=== PATIENT | male | born 1995 | race Caucasian/White ===

== ENCOUNTER 2017-11-07 05:00 | Day surgery (SDC) | payer SELFPAY ==
[~2017-11-07] VITALS: Ht 188 cm; Wt 90.7 kg
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
[2017-11-07] MEDS ORDERED: ceFAZolin INJECTION 1,000 MG in NS (IVPB) 50 ML IV ONE (05:15)
[2017-11-07 05:25] LABS: BASOPHILS % (AUTO) 1 % (0-10); EOSINOPHILS % (AUTO) 1 % (0-10); HEMATOCRIT 38 % (40-54); HEMOGLOBIN 13.6 G/DL (13.3-17.7); LYMPHOCYTES # (AUTO) 1.8 X 10^3 (1.0-4.0); LYMPHOCYTES % (AUTO) 31 % (12-44); MEAN CORPUSCULAR HEMOGLOBIN 30 PG (25-34); MEAN CORPUSCULAR HGB CONC 36 G/DL (32-36); MEAN CORPUSCULAR VOLUME 86 FL (80-99); MEAN PLATELET VOLUME 9.4 FL (7.4-10.4); MONOCYTES # (AUTO) 0.8 X 10^3 (0.0-1.0); MONOCYTES % (AUTO) 14 % (0-12); NEUTROPHILS # (AUTO) 3.2 X 10^3 (1.8-7.8); NEUTROPHILS % (AUTO) 55 % (42-75); PLATELET COUNT 247 10^3/uL (130-400); RED BLOOD COUNT 4.47 10^6/uL (4.35-5.85); RED CELL DISTRIBUTION WIDTH 12.1 % (10.0-14.5); WHITE BLOOD COUNT 5.9 10^3/uL (4.3-11.0)
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
[2017-11-07 05:39] LABS: INR 1.2 (0.8-1.4); PROTHROMBIN TIME PATIENT 14.8 SEC (12.2-14.7)
[2017-11-07 05:45] LABS: ALANINE AMINOTRANSFERASE 13 U/L (0-55); ALBUMIN 4.4 GM/DL (3.2-4.5); ALKALINE PHOSPHATASE 70 U/L (40-136); BILIRUBIN,TOTAL 0.6 MG/DL (0.1-1.0); BUN/CREATININE RATIO 11; CALCIUM 9.7 MG/DL (8.5-10.1); CARBON DIOXIDE 26 MMOL/L (21-32); CHLORIDE 104 MMOL/L (98-107); GFR ESTIMATED > 60; GLUCOSE 94 MG/DL (70-105); POTASSIUM 3.8 MMOL/L (3.6-5.0); SODIUM 139 MMOL/L (135-145); TOTAL PROTEIN 7.4 GM/DL (6.4-8.2)
[2017-11-07] MEDS ORDERED: TETANUS,DIPTH,PERTUSS P/F (BOOSTRIX) 0.5 ML VIAL IM ONE (05:45)
[2017-11-07] MEDS ORDERED: fentaNYL INJECTION 100 MCG/2 ML AMP IVP STA (05:58)
[2017-11-07] MEDS ORDERED: proPOfol 200 MG/20 ML (DIPRIVAN) VIAL IV ONE (06:37)
[2017-11-07] MEDS ORDERED: fentaNYL INJECTION 100 MCG/2 ML AMP ONE (06:37)
[2017-11-07] MEDS ORDERED: LIDOCAINE PF 2% 5 ML (XYLOCAINE) VIAL ONE (06:38)
[2017-11-07] MEDS ORDERED: MIDAZOLAM 2 MG/2 ML (VERSED) VIAL ONE (06:38)
[2017-11-07] MEDS ORDERED: SUCCINYLCHOLINE INJ 100 MG/5 ML SYR ONE (06:39)
[2017-11-07] MEDS ORDERED: DEXAMETHASONE 10 MG/ML (DECADRON) 1 ML VIAL ONE (06:39)
[2017-11-07] MEDS ORDERED: ONDANSETRON 4 MG/2 ML (SDV) Z0FRAN ONE (06:39)
[2017-11-07] MEDS ORDERED: GENTAMICIN 40 MG/ML 2 ML INJ SDV IV ONE (06:44)
[2017-11-07] MEDS ORDERED: CEPH250C PO (07:10)
[2017-11-07] MEDS ORDERED: OXYC-471 PO (07:10)
[2017-11-07] MEDS ORDERED: ROCURONIUM 10 MG/ML 5 ML SYRINGE IV ONE (07:39)
[2017-11-07] MEDS ORDERED: SEVOFLURANE (ULTANE) 15 ML INHAL SOLN ONE ×2 (07:39→07:41)
--- NOTE | 2017-11-07 07:42 | Diagnostic Imaging Report ---
Indication: Laceration to wrist. Findings: There has been previous open reduction and internal fixation of a distal radial fracture with plate and screws. The distal radius and ulna are otherwise intact. No definite acute fracture or dislocation. There is a radiopaque foreign body along the dorsal aspect of the wrist. Impression: Radiopaque foreign body along the dorsal aspect of the wrist. No acute fracture or dislocation. Dictated by: Dictated on workstation # [id number]
--- NOTE | 2017-11-07 07:45 | Diagnostic Imaging Report ---
Indication: Laceration. Findings: There has been previous open reduction and internal fixation of a distal radial fracture plate and screws. There is a radiopaque density along the dorsal aspect of the wrist. While this may reflect avulsion fracture of the ulna, the possibility of a foreign body is also an additional consideration. There is no other fracture or dislocation. Impression: Radiopaque density along the dorsal aspect of the wrist. Again this is indeterminate between an avulsion fracture off the ulnar or possibly radiopaque foreign body. Recommend clinical correlation. Dictated by: Dictated on workstation # [id number]
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
[2017-11-07 08:50] VITALS: BP 122/67
[2017-11-07 09:20] VITALS: BP 117/74
[2017-11-07 09:50] VITALS: BP 128/87
[2017-11-07] MEDS ORDERED: oxyCODONE/APAP 5/325MG (PERCOCET 5) TABLET ONE (10:29)
[2017-11-07] MEDS ORDERED: oxyCODONE/APAP 5/325MG (PERCOCET 5) TABLET PO ONE (10:30)
[2017-11-07] MEDS ORDERED: ONDANSETRON 4 MG/2 ML (SDV) Z0FRAN IVP PRN (10:44)
[2017-11-07] MEDS ORDERED: morphine INJ 10 MG/ML 1ML (SYR OR VIAL) IVP PRN (10:44)
[2017-11-07] MEDS ORDERED: MEPERIDINE (DEMEROL) INJ 50 MG/ML IVP PRN (10:44)
[2017-11-07] MEDS ORDERED: HYDROmorphone 1 MG/ML (DILAUDID) 1 ML SYRINGE IV PRN (10:44)
[2017-11-07] MEDS ORDERED: PROMETHAZINE INJ 25 MG/ML (PHENERGAN) AMP IVP PRN (10:45)
[2017-11-07 10:50] VITALS: BP 135/86
[2017-11-07 11:30] VITALS: BP 135/86
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
== END 2017-11-07 11:30 | disposition home or self-care (01) ==
LOC: ER 05:04 → SDC 06:19 → ER 06:49 → SDC 11:30
PROVIDERS: ATTEND Orthopaedic Surgery
DX: S56.522A Laceration of other extensor muscle, fascia and tendon at forearm level, left arm, initial encounter (principal); S56.426A Laceration of extensor muscle, fascia and tendon of left ring finger at forearm level, initial encounter; S56.428A Laceration of extensor muscle, fascia and tendon of left little finger at forearm level, initial encounter; F17.210 Nicotine dependence, cigarettes, uncomplicated; V18.0XXA Pedal cycle driver injured in noncollision transport accident in nontraffic accident, initial encounter
CPT/HCPCS: 36415; 73090; 73110; 80053; 80320; 85025; 85610; 85730; 90471; 90715; 96365; 96375

== ENCOUNTER → 2017-11-07 | Outpatient (CLI) | payer SELFPAY ==
[~2017-11-07] MED LIST: CEPH250C PO; CEPHALEXIN 250 MG (KEFLEX) CAP PO SCH; GENTAMICIN 40 MG/ML 2 ML INJ SDV ONE; HYDROmorphone 1 MG/ML (DILAUDID) 1 ML SYRINGE IV PRN; MEPERIDINE (DEMEROL) INJ 50 MG/ML IVP PRN; ONDANSETRON 4 MG/2 ML (SDV) Z0FRAN IVP PRN; OXYC-471 PO; PROMETHAZINE INJ 25 MG/ML (PHENERGAN) AMP IVP PRN; ceFAZolin INJECTION 1,000 MG in NS (IVPB) 50 ML IV ONE; morphine INJ 10 MG/ML 1ML (SYR OR VIAL) IVP PRN; oxyCODONE/APAP 5/325MG (PERCOCET 5) TABLET PO PRN
--- NOTE | 2017-11-07 07:09 | Discharge Inst-Surgical ---
Discharge Inst-Surgical Depart Medication/Instructions Final Diagnosis: laceration left forearm Consults/Follow Up Goal/Follow Up Appt.: Follow up with Dr. De La Rosa in 7-10 days Patient Instructions: Percocet for pain Keflex -- antibiotic. take until completed Keep splint and dressing in place until appointment. Activity Activity as Tolerated: No Keep splint on left hand to protect tendons. Activity Instructions: Avoid Pulling & Pushing, Avoid Stress to Incision Elevate Extremity: Elevate Above Heart Driving Instructions: You May Drive No Driving When on Pain Meds: Yes Avoid ALL Tobacco Products: Smoking of Any Kind Diet Discharge Diet: No Restrictions Diet for 24 Hours: No Alcohol Symptoms to Report to Physicia: Extremity Discoloration, Pain Increased, Fever Over 101 Degrees F If Any Problems/Questions/Issu: Go to Emergency Room Skin/Wound Care Infection Signs and Symptoms: Foul Odor of Wound, Increased Drainage, Increased Swelling, Temperature Above 101 F Bathing Instructions: Shower Operative Area Clean and Dry: Keep Incision Clean/Dry SUHAS DE LA ROSA MD Nov 07, 2017 07:09
--- NOTE | 2017-11-07 08:11 | Anesthesia-General Post-Op ---
General Patient Condition Mental Status/LOC: Same as Preop Cardiovascular: Satisfactory Nausea/Vomiting: Absent Respiratory: Satisfactory Pain: Controlled Complications: Absent Post Op Complications Complications None Follow Up Care/Instructions Patient Instructions None needed. Anesthesia/Patient Condition Patient Condition Patient is doing well, no complaints, stable vital signs, no apparent adverse anesthesia problems. No complications reported per nursing. KIM GANDHI CRNA Nov 07, 2017 08:11
== END ==
LOC: SDC 06:19
PROVIDERS: ATTEND Orthopaedic Surgery
DX: Z53.9 Procedure and treatment not carried out, unspecified reason (principal)

== ENCOUNTER 2018-10-23 03:50 | Emergency (ER) | payer BC ==
[~2018-10-23] VITALS: Ht 188 cm; Wt 90.7 kg
[~2018-10-23 03:50] MED LIST changes: -CEPHALEXIN 250 MG (KEFLEX) CAP PO SCH; -GENTAMICIN 40 MG/ML 2 ML INJ SDV ONE; -HYDROmorphone 1 MG/ML (DILAUDID) 1 ML SYRINGE IV PRN; -MEPERIDINE (DEMEROL) INJ 50 MG/ML IVP PRN; -ONDANSETRON 4 MG/2 ML (SDV) Z0FRAN IVP PRN; -PROMETHAZINE INJ 25 MG/ML (PHENERGAN) AMP IVP PRN; -ceFAZolin INJECTION 1,000 MG in NS (IVPB) 50 ML IV ONE; -morphine INJ 10 MG/ML 1ML (SYR OR VIAL) IVP PRN; -oxyCODONE/APAP 5/325MG (PERCOCET 5) TABLET PO PRN
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
[2018-10-23] MEDS ORDERED: CLINDAMYCIN 600 MG/4ML (CLEOCIN) VIAL IM STA (04:13)
[2018-10-23] MEDS ORDERED: KETOROLAC 60 MG/2 ML VIAL IM STA (04:13)
[2018-10-23] MEDS ORDERED: MUPIROCIN 2% OINT 22 GM (BACTROBAN) TUBE ONE (04:15)
[2018-10-23] MEDS ORDERED: CLINDAMYCIN 600 MG/4ML (CLEOCIN) VIAL ONE (04:17)
[2018-10-23] MEDS ORDERED: KETO10TA PO (04:19)
[2018-10-23] MEDS ORDERED: SULF1TAB35 PO (04:19)
--- NOTE | 2018-10-23 04:21 | ED Integumentary General ---
General Chief Complaint: Skin/Wound Problems Stated Complaint: BITE ON CHEEK AND BUTT Source: patient History of Present Illness Date Seen by Provider: Oct 23, 2018 Time Seen by Provider: 03:59 Initial Comments PT ARRIVES VIA POV FROM HOME C/O PAINFUL AREA TO LEFT BUTTOCK --NOTICED YESTERDAY WOKE UP AN HOUR AGO WITH SIMILAR AREA TO RIGHT CHEEK HAS HISTORY OF MRSA AND THESE AREAS ARE THE SAME HAS BEEN POKING, PICKING AT AND SQUEEZING THE AREAS, WITHOUT IMPROVEMENT AND SIGNIFICANT WORSENING OF PAIN, REDNESS AND SWELLING HAS PUT "PRID" ON THE AREAS HAS NOT TAKEN ANYTHING FOR PAIN HAD SUBJECTIVE FEVER PRIOR TO ARRIVAL LAST TETANUS < 5 YEARS AGO PCP: DR. Mac SHELLEY / DR. Violetta MENDEZ--[facility] Allergies and Home Medications Allergies Coded Allergies: No Known Drug Allergies (Unverified , 11/07/17) Home Medications Cephalexin 250 Mg Capsule, 500 MG PO QID Prescribed by: SUHAS ANGELA MD on 11/07/17 0710 Ketorolac Tromethamine 10 Mg Tablet, 10 MG PO Q6H Prescribed by: SUGAR MATOS on 10/23/18 0419 Oxycodone HCl/Acetaminophen 1 Each Tablet, 1-2 TAB PO Q4H PRN for PAIN-MODERATE TO SEVERE Prescribed by: SUHAS ANGELA MD on 11/07/17 0710 Sulfamethoxazole/Trimethoprim 1 Each Tablet, 2 EACH PO BID Prescribed by: SUGAR MATOS on 10/23/18 0419 Patient Home Medication List Home Medication List Reviewed: Yes Review of Systems Review of Systems Constitutional: see HPI, fever EENTM: see HPI Respiratory: no symptoms reported Cardiovascular: no symptoms reported Gastrointestinal: no symptoms reported Genitourinary: no symptoms reported Musculoskeletal: no symptoms reported Skin: see HPI Psychiatric/Neurological: No Symptoms Reported Endocrine: No Symptoms Reported Hematologic/Lymphatic: No Symptoms Reported Past Orajzpm-Jjygnx-Xsgrut Hx Patient Social History Alcohol Use: Occasionally Uses ("OCCASIONAL" USE NOW--VERY HEAVY USE/ABUSE IN THE PAST--20 BEERS + [place] OF [place]/ DAY) Recreational Drug Use: Yes (THC, +IV METH USE) Drug of Choice: THC, + IV METH USE Smoking Status: Current Everyday Smoker (1/2 PPD) Type Used: Cigarettes (1/2 PPD) 2nd Hand Smoke Exposure: No Recent Foreign Travel: No Contact w/Someone Who Travel: No Recent Hopitalizations: No Immunizations Up To Date Tetanus Booster (TDap): Less than 5yrs (10/2017) PED Vaccines UTD: Yes Seasonal Allergies Seasonal Allergies: No Past Medical History Surgeries: Yes (REPAIR OF TENDON LACERATIONS LEFT WRIST/HAND 10/2017; MULTIPLE FRACTURES OF BOTH ARMS / WRISTS WITH LEFT FOREARM/WRIST FX/ORIF--OTHERS WERE CLOSED REDUCTIONS; RIGHT ANKLE FX/REPAIR; RIGHT SHOULDER FX/REPAIR; ABSCESS I&D RIGHT NECK AREA. ) Orthopedic Respiratory: No Cardiac: No Neurological: No Genitourinary: No Gastrointestinal: No Musculoskeletal: Yes (MULTPLE FRACTURES OF BOTH ARMS/ WRISTS--LEFT FOREARM/WRIST FX/ORIF; OTHERS WERE CLOSED REDUCTIONS; RIGHT SHOULDER FX/ REPAIR; RIGHT ANKLE FX/ REPAIR--ALL PER PT) Fractures Endocrine: No HEENT: No Cancer: No Psychosocial: Yes (MULTIPLE INCARCERATIONS) Integumentary: No Blood Disorders: No Family Medical History MULTIPLE INCARCERATIONS Physical Exam Vital Signs Capillary Refill : General Appearance: WD/WN, no apparent distress HEENT: PERRL/EOMI, other (RIGHT UPPER CHEEK WITH MACERATED CENTER, AND MODERATE SURROUNDING ERYTHEMA, WARMTH, TENDERNESS AND SWELLING--APPROXIMATELY 4 CM DIAMETER. NO AREAS OF FLUCTUANCE, NO DRAINAGE. NO STREAKS.) Neck: normal inspection Cardiovascular: normal peripheral pulses, regular rate, rhythm Respiratory: normal breath sounds Back: other (LEFT BUTTOCK WITH 4 CM AREA OF ERYTHEMA, WARMTH, TENDERNESS, SWELLING AND MACERATED/DENUDED CENTER. NO DRAINAGE. NO FLUCTUANCE, NO STREAKS. ) Neurologic/Psychiatric: no motor/sensory deficits, alert, normal mood/affect, oriented x 3 Skin: normal color, warm/dry, tattoos/piercings (EXTENSIVE TATTOOS) Progress/Results/Core Measures Results/Orders My Orders Orders - SUGAR MATOS DO Wound Dressing-Ed (10/23/18 04:13) Ketorolac Injection (Toradol Injection) (10/23/18 04:13) Clindamycin Injection (Cleocin Injection (10/23/18 04:13) Mupirocin Ointment (Bactroban Ointment (10/23/18 09:00) Mupirocin Ointment (Bactroban Ointment (10/23/18 04:15) Clindamycin Injection (Cleocin Injection (10/23/18 04:17) Progress Progress Note : Progress Note NO DEFINITE ABSCESSES TO I&D AT THIS TIME WILL TREAT WITH ANTIBIOTICS AND PT IS TO FOLLOW UP WITH PCP EXPLAINED TO PT THAT HE MAY NEED I&D IN FUTURE IF ABSCESS DEFINES ITSELF. EXPLAINED THE IMPORTANCE OF NOT SQUEEZING, POKING OR PICKING AT AREAS Departure Impression Primary Impression: Cellulitis of right external cheek Additional Impressions: Cellulitis of left buttock Hx MRSA infection Disposition: HOME, SELF-CARE Condition: Stable Departure-Patient Inst. Referrals: JUN MENDEZ DO (PCP) Primary Care Physician Patient Instructions: MRSA (DC), Cellulitis (Skin Infection), Adult (DC) Add. Discharge Instructions: CLEAN AREAS TWICE A DAY WITH ANTIBACTERIAL SOAP AND WATER, APPLY ANTIBIOTIC OINTMENT AND FRESH DRESSING TWICE A DAY DO NOT POKE, PICK AT OR SQUEEZE THE AREAS FOLLOW UP WITH YOUR DR IN 2 DAYS FOR FURTHER CARE, RETURN TO ER IF WORSE All discharge instructions reviewed with patient and/or family. Voiced understanding. Scripts Ketorolac Tromethamine (Ketorolac Tromethamine) 10 Mg Tablet 10 MG PO Q6H for Pain, #15 TAB Prov: SUGAR MATOS DO 10/23/18 Sulfamethoxazole/Trimethoprim (Bactrim Ds Tablet) 1 Each Tablet 2 EACH PO BID, #40 TAB Prov: SUGAR MATOS DO 10/23/18 Images Head/Face 1 - Cellulitis Torso/Trunk 1 - Cellulitis SUGAR MATOS DO Oct 23, 2018 04:21
[2018-10-23 04:36] VITALS: BP 141/92
[2018-10-23] MEDS ORDERED: MUPIROCIN 2% OINT 22 GM (BACTROBAN) TUBE TOP SCH (09:00)
== END 2018-10-23 04:38 | disposition home or self-care (01) ==
LOC: EDUNIT# 03:50 → ER 03:53
DX: L03.211 Cellulitis of face (principal); L03.317 Cellulitis of buttock; F15.10 Other stimulant abuse, uncomplicated; F12.10 Cannabis abuse, uncomplicated; F17.210 Nicotine dependence, cigarettes, uncomplicated; Z86.14 Personal history of Methicillin resistant Staphylococcus aureus infection; Z87.81 Personal history of (healed) traumatic fracture
CPT/HCPCS: 96372; 99284